=== PATIENT | female | born 1975 | race Caucasian/White ===

== ENCOUNTER 2017-08-18 00:13 | Emergency (ER) | payer BC, OTHER ==
[2017-08-18 01:15] LABS: ALT (SGPT) 28 U/L (8-55); AST (SGOT) 43 U/L (5-34); Acetaminophen Less than 6.0 mcg/mL (10.0-30.0); Alkaline Phosphatase 58 U/L (40-150); Anion Gap 19 mmol/L (10-20); BUN (Urea Nitrogen) 12 mg/dL (7.0-18.7); Bilirubin, Total 1.3 mg/dL (0.2-1.2); Calc. Creatinine Clearance 0 mL/min (70-130); Calcium 9.6 mg/dL (7.8-10.44); Carbon Dioxide 21 mmol/L (22-29); Chloride 97 mmol/L (98-107); Estimated GFR-MDRD 87; Globulin 2.8 g/dL (2.4-3.5); Salicylate Less than 8.0 mg/dL (15.0-30.0)
[2017-08-18 01:16] LABS: Hematocrit 43.8 % (36.0-47.0); Mean Platelet Volume 7.1 fL (7.4-10.4); Red Blood Cell (RBC) Count 4.18 mill/uL (4.20-5.40)
[2017-08-18 01:35] LABS: Macrocytosis SLIGHT = 6-15 cells (100X) (0-5/hpf); Neutrophil 43 % (42-75); White Blood Cell (WBC) Count 5.8 thou/uL (4.8-10.8)
[2017-08-18] MEDS ORDERED: Lorazepam 2 MG/ML VIAL ONE (03:16)
[2017-08-18] MEDS ORDERED: diphenhydrAMINE 50 MG/ML VIAL ONE (03:16)
== END 2017-08-18 08:20 | disposition home or self-care (01) ==
LOC: ERS 00:13
DX: R20.2 Paresthesia of skin (principal); B95.8 Unspecified staphylococcus as the cause of diseases classified elsewhere; F17.210 Nicotine dependence, cigarettes, uncomplicated
CPT/HCPCS: 36416; 80053; 80307; 82550; 84443; 85025; 93005; 96372; J1200; J2060

== ENCOUNTER 2019-01-13 09:59 | Emergency (ER) | payer BC ==
--- NOTE | 2019-01-13 10:25 | RAD ---
EXAM: Right foot: 3 views INDICATIONS: Injury COMPARISON: None. FINDINGS: Tarsals unremarkable. Metatarsals and phalanges appear intact. Mild DJD at the first MTP [place] int. IMPRESSION: No acute finding
[2019-01-13] MEDS ORDERED: Ibuprofen 100 MG/5 ML UDCUP ONE (10:46)
[2019-01-13] MEDS ORDERED: Ibuprofen 200 MG TAB ONE ×2 (10:47)
== END 2019-01-13 11:03 | disposition home or self-care (01) ==
LOC: ERS 09:59
DX: S90.111A Contusion of right great toe without damage to nail, initial encounter (principal); F17.210 Nicotine dependence, cigarettes, uncomplicated; X50.9XXA Other and unspecified overexertion or strenuous movements or postures, initial encounter

== ENCOUNTER 2021-10-22 09:10 | Emergency (ER) | payer BC ==
[2021-10-22 09:59] LABS: #Basophils 0.1 thou/uL (0.0-0.2); #Eosinphils 0.3 thou/uL (0.0-0.7); #Lymphocytes 2.4 thou/uL (1.20-3.40); #Monocytes 0.4 thou/uL (0.11-0.59); #Neutrophils 6.6 thou/uL (1.40-6.50); %Basophils 0.7 % (0.0-1.0); %Eosinophils 3.4 % (0.0-10.0); %Monocytes 3.6 % (0.0-10.0); %Neutrophils 67.3 % (42.0-75.0); Hemoglobin 13.2 g/dL (12.0-16.0); Mean Corpuscular HGB CONC 32.5 g/dL (32.0-36.0); Mean Corpuscular Hemoglobin 33.5 pg (27.0-31.0); Mean Platelet Volume 7.4 fL (7.4-10.4); Platelet Count 367 thou/uL (130-400); RBC Distribution Width 11.8 % (11.5-14.5); Red Blood Cell (RBC) Count 3.94 mill/uL (4.20-5.40); White Blood Cell (WBC) Count 9.7 thou/uL (4.8-10.8)
[2021-10-22 10:19] LABS: ALT (SGPT) 9 U/L (8-55); AST (SGOT) 15 U/L (5-34); Alkaline Phosphatase 66 U/L (40-110); Anion Gap 11 mmol/L (10-20); BUN (Urea Nitrogen) 13 mg/dL (7.0-18.7); Bilirubin, Total 0.5 mg/dL (0.2-1.2); Calc. Creatinine Clearance 0 mL/min (70-130); Calcium 9.3 mg/dL (7.8-10.44); Carbon Dioxide 29 mmol/L (22-29); Chloride 103 mmol/L (98-107); Globulin 2.8 g/dL (2.4-3.5); Glucose 86 mg/dL (70-105); Lipase 20 U/L (8-78); Potassium 3.8 mmol/L (3.5-5.1); Protein, Total 6.8 g/dL (6.0-8.3); Sodium 139 mmol/L (136-145)
[2021-10-22] MEDS ORDERED: Meclizine HCl 25 MG TAB ONE (10:38)
[2021-10-22 11:40] LABS: Bilirubin Negative (Negative); Blood, Urine Negative (Negative); Clarity Clear (Clear); Glucose, Urine (Dipstick) Normal (Negative); Ketone, Urine Negative (Negative); Leukocyte Negative Leu/uL (Negative); Nitrite Negative (Negative); Protein, Urine (Dipstick) Negative (Neg-Trace); Specific Gravity, Urine 1.006 (1.002-1.036); Urobilinogen Normal mg/dL (Less than 2); pH, Urine 7.5 (5.0-9.0)
[2021-10-22 11:43] LABS: CK (CPK) 37 U/L (29-168)
== END 2021-10-22 14:15 | disposition home or self-care (01) ==
LOC: ERS 09:10
DX: H81.391 Other peripheral vertigo, right ear (principal); E03.9 Hypothyroidism, unspecified; F17.210 Nicotine dependence, cigarettes, uncomplicated; Z79.899 Other long term (current) drug therapy
CPT/HCPCS: 36415; 70450; 80053; 80178; 81003; 82550; 83690; 83735; 84443; 85025; 93005